=== PATIENT | male | born 1955 | race Caucasian/White ===

== ENCOUNTER 2024-01-17 21:14 | Inpatient (IN) | payer MEDICARE, SELFPAY ==
--- NOTE | ~2024-01-17 | XR_ITS ---
XR chest 1V portable Ordering provider: Chava Chan PA-C History: 68 years Male with . chest pain, shortness of breath . Comparison: None. FINDINGS: MEDIASTINUM: The cardiac silhouette is not enlarged. LUNGS: No infiltrates, effusions or pneumothorax. OTHER: No free air under the diaphragm. Degenerative changes of the spine. Postoperative changes in the lower cervical area. IMPRESSION: No acute cardiopulmonary pathology. Reviewed, dictated and finalized at location A.
[2024-01-17 21:18] VITALS: BP 138/104; PULSE 170; RESP 20; TEMP 36.7; O2SAT 97
--- NOTE | 2024-01-17 21:21 | ECG_ITS ---
[facility] [address] Test Date: 2024-01-17 Pat Name: Marcel Albrecht Department: Room: Gender: M Network Project Manager: Cd : 1955 Requested By: Red Pierce Order Number: [id number] Elba MD: Pacheco Manning M.D. Measurements Intervals [place] Rate: 129 P: 0 ID: [id number] QRS: 29 QRSD: 91 T: 21 QT: 275 QTc: 403 Interpretive Statements ATRIAL FIBRILLATION WITH RAPID VENTRICULAR RESPONSE NONSPECIFIC ST SEGMENT ABNORMALITY ABNORMAL ECG No previous ECG available for comparison Electronically Signed On 01-18-2024 08:07:16 CDT by Pacheco Manning M.D.
[2024-01-17] MEDS: dilTIAZem HCl INJ 25 MG/5 ML VIAL 15 MG IV PUSH (21:33)
--- NOTE | 2024-01-17 21:34 | ECG_ITS ---
[facility] [address] Test Date: 2024-01-17 Pat Name: Marcel Albrecht Department: Room: 209 Gender: M Pipe Cutter: : 1955 Requested By: Gemini Louis Order Number: [id number] Elba MD: Pacheco Manning M.D. Measurements Intervals [place] Rate: 115 P: 0 [place]: 0 QRS: 12 QRSD: 93 T: 9 QT: 318 QTc: 441 Interpretive Statements ATRIAL FIBRILLATION WITH RAPID VENTRICULAR RESPONSE BORDERLINE LEFTWARD AXIS ABNORMAL RHYTHM ECG Compared to ECG 01/17/2024 21:21:41 HEART RATE IS BETTER CONTROLLED Electronically Signed On 01-19-2024 07:40:06 CDT by Pacheco Manning M.D.
--- NOTE | 2024-01-17 21:37 | ED.CHESTPAIN ---
HPI - Chest Pain General Chief Complaint: Chest Pain <GRAHAM Rose Last Filed: 01/18/24 01:59> Stated Complaint: chest <GRAHAM Rose Last Filed: 01/18/24 01:59> Time Seen by Provider: 01/17/24 21:29 <GRAHAM Rose Last Filed: 01/18/24 01:59> Source: patient <GRAHAM Rose Last Filed: 01/18/24 01:59> Mode of arrival: ambulatory <GRAHAM Rose Last Filed: 01/18/24 01:59> Limitations: no limitations <GRAHAM Rose Last Filed: 01/18/24 01:59> History of Present Illness HPI narrative: This is a 68-year-old male With PMH of HLD, HTN who presents to the ED for chief complaint of chest pain and shortness of breath beginning around 6:00 p.m. this evening. Reports the pain was located on the left side hand seemed to maybe get a little better when he pushed on it. Describes it as discomfort. States that shortness of breath was onset alongside the chest pain. Dyspnea was worse with exertion. States it was hard to get across the room without feeling winded. Also endorses palpitations and feelings of racing heart. States he was feeling fine up until this point and his usual state of health. Denies fevers, chills, abdominal pain, cough, nausea, vomiting, syncope, leg swelling. <GRAHAM Rose Last Filed: 01/18/24 01:59> Related Data Home Medications: Home Medications Medication Instructions Recorded Confirmed atorvastatin 40 mg tablet 40 mg PO DAILY 01/22/23 01/18/24 lisinopril 40 mg tablet 40 mg PO DAILY 01/22/23 01/18/24 meloxicam 15 mg tablet 15 mg PO DAILY 01/22/23 01/18/24 multivit with minerals-iron 18 1 tablet PO DAILY 01/18/24 01/18/24 mg-folic ac 400 mcg-vit K 25 mcg tablet (Adults Multivitamin) multivitamin 1 tablet PO DAILY 01/18/24 01/18/24 <Chava Chan PA-C - Last Filed: 01/18/24 01:59> Allergies/Adverse Reactions: Allergies Allergy/AdvReac Type Severity Reaction Status Date / Time No Known Allergies Allergy Mild Verified 01/18/24 02:15 <GRAHAM Rose Last Filed: 01/18/24 01:59> Review of Systems Review of Systems: All systems as dictated in HPI <GRAHAM Rose Last Filed: 01/18/24 01:59> [facility] Past Medical History Medical History: Medical History Hyperlipidemia Hypertension Osteoarthritis <GRAHAM Rose Last Filed: 01/18/24 01:59> Surgical History Surgical History: Surgical History History of arthroscopy of left knee 06/2018 History of colon resection 12/12/2017 Hx of fusion of cervical spine C6 04/15/2019 <Chava Chan PA-C - Last Filed: 01/18/24 01:59> Family History Family History: Family History Father COPD (chronic obstructive pulmonary disease) Mother Aneurysm Breast cancer Sibling Breast cancer <Chava Chan PA-C Last Filed: 01/18/24 01:59> Social History Social History: Social History Smoking status: Never smoker Second hand tobacco smoke exposure: No Alcohol intake: never Substance use: never Substance use type: does not use Do You Feel Safe in your Home?: Yes Lack of Transportation: No Lack of Food: Never True Current Housing: I Have Housing Concerned About Future Housing: No Difficulty Paying Gas/Electric Bills: No Difficulty Paying for Meds: No Currently Unemployed: No Education: High School Diploma/GED Difficulty w/ Childcare or Family Care: No Living arrangements: with family Occupation/Education: retired Gender identity (if verbalized by the patient): Male Sexual Orientation (if Verbalized by the Patient): Straight or Heterosexual Spiritual care concerns: No <Chava Chan PA-C - Last Filed: 01/18/24 01:59>
[2024-01-17] MEDS: SODIUM CHLORIDE 0.9% IV 1,000 ML 999 ML IV CONT (21:51)
[2024-01-17 21:59] LABS: Basophils Percent Auto 0.3 % (0.2-1.2); Eosinophils Absolute Auto 0.1 K/mm3 (0-0.3); Eosinophils Percent Auto 0.9 % (0-4.4); Hemoglobin 14.8 g/dL (14.0-18.0); Immature Granulocyte Absolute 0.02 K/mm3 (0.00-0.031); Immature Granulocyte Percent A 0.2 % (0-0.5); Lymphocytes Absolute Auto 1.84 K/mm3 (0.9-3.2); Lymphocytes Percent Auto 20.1 % (18.3-44.2); Mean Corpuscular HGB Conc 34.4 g/dl (32-36); Mean Corpuscular Hemoglobin 30.4 pg (26-34); Mean Corpuscular Volume 88.3 fl (80-100); Mean Platelet Volume 12.4 fl (7.4-10.4); Monocytes Absolute Auto 0.8 K/mm3 (0.1-0.6); Monocytes Percent Auto 8.7 % (2.6-8.5); Neutrophils Absolute Auto 6.4 K/mm3 (1.3-6.7); Neutrophils Percent Auto 69.8 % (45.5-73.1); Platelet Count Result 201 k/mm3 (150-375); Red Blood Count 4.87 M/mm3 (4.6-6.20); Red Cell Distribution Width 13.1 % (11.5-14.5); White Blood Count 9.2 K/mm3 (4.5-10.0)
[2024-01-17 22:10] LABS: Prothrombin Time 13.4 Seconds (11.1-14.7)
[2024-01-17] MEDS: dilTIAZem HCl INJ 25 MG/5 ML VIAL 10 MG IV PUSH (22:10)
[2024-01-17 22:11] LABS: Partial Thromboplastin Time 29.8 Seconds (22.3-36.8)
[2024-01-17 22:15] VITALS: BP 105/69; PULSE 104; RESP 18; O2SAT 94
[2024-01-17 22:15] LABS: Alanine Aminotransferase 32 U/L (6-50); Albumin Level 4.5 g/dL (3.5-5.1); Alkaline Phosphatase 67 U/L (38-126); Anion Gap 9 mmol/L (4-12); Aspartate Amino Transferase 36 U/L (17-59); Bilirubin,Total 0.7 mg/dL (0.2-1.3); Blood Urea Nitrogen 37 mg/dL (9-20); Carbon Dioxide 22 mmol/L (22-30); Chloride 109 mmol/L (98-107); Estimated CRCL calculation 66 ml/min; Estimated Glomerular Filt Rate 60; Glucose 152 mg/dL (65-110); Lipase 204 U/L (23-300); Potassium 3.8 mmol/L (3.4-5.0); Sodium 140 mmol/L (137-145)
[2024-01-17 22:27] LABS: NT Pro B Type Natriuretic Pept 44 pg/mL (19.9-100); Troponin I 0.017 ng/mL (0.000-0.034)
[2024-01-17 22:34] LABS: D Dimer 0.38 ug/mL (<0.48)
[2024-01-17 22:44] VITALS: BP 112/69; PULSE 118; RESP 16; O2SAT 96
[2024-01-17 23:30] VITALS: BP 110/58; PULSE 146
[2024-01-17] MEDS: dilTIAZem 100 MG/100 ML 100 MG/100 ML BAG IV CONT (23:30)
[2024-01-18] VITALS (23 sets, daily range): BP systolic 103–144; BP diastolic 56–86; PULSE 56–138; RESP 13–18; TEMP 36.1–37.2; O2SAT 94–98; BMI 31.4
[2024-01-18] MEDS: ENOXAPARIN 40 MG/0.4 ML SYRINGE SUB-Q (01:10)
[2024-01-18] MEDS: ASPIRIN 81 MG CHEWABLE TABLET 324 MG PO (01:11)
--- NOTE | 2024-01-18 01:36 | ADMGEN ---
This patient, Marcel Albrecht, was admitted to IMU Room 209-01 on 01/18/24 at 0135. Patient/family oriented to hospital policies and general routines including ID bracelet, bed and alarms, visiting hours, pain management, procedures, bathroom and other care routines, personal items, smoking policy, room service/diet, and visiting hours. Information on how to activate the Rapid Response Team has been discussed. Patient/Family are encouraged to report perceived risks to care and to ask questions if they do not understand what they are told or what they should do.
[2024-01-18 01:56] LABS: Troponin I 0.251 ng/mL (0.000-0.034)
[2024-01-18 02:58] LABS: Appearance Urine Clear (Clear); Bilirubin Urine Negative (Negative); Blood Urine Negative (Negative); Color Urine Yellow (Yellow); Glucose Urine UA Negative (Negative); Ketones Urine Trace mg/dL (Negative); Leukocyte Esterase Ur Negative LEU/UL (Negative); Nitrate Urine Negative (Negative); Protein Urine Negative (Negative); Specific Grav Ur 1.024 (1.001-1.035); Urobilinogen Urine 0.2 mg/dL (<2.0)
[2024-01-18 03:01] LABS: Add Urine Microscopic? NO
[2024-01-18 04:25] LABS: Troponin I 0.349 ng/mL (0.000-0.034)
--- NOTE | 2024-01-18 07:00 | ECHO_ITS ---
Patient Info Name: Marcel Albrecht Age: 68 years : 1955 Gender: Male Ht: 72 in Wt: 233 lbs BSA: 2.35 m2 HR: 115 bpm BP: 106 / 58 mmHg Heart Rhythm: Sinus Rhythm Technical Quality: Good Exam Date: 01/18/2024 8:40 AM Exam Location: Echo Lab Patient Status: Inpatient Admit Date: 01/18/2024 Staff Ordering Physician: Chava Chan PA-C Granite Installer: Sander Hemphill RDCS Attending Provider: Jadiel Crockett MD Referring Physician: Dustin ALEJANDRO; Exam Type: CA echo doppler color flow Study Info Indications - new onset afib Complete two-dimensional, color flow and Doppler transthoracic echocardiogram is performed. Summary 1. Complete two-dimensional, color flow and Doppler transthoracic echocardiogram is performed. 2. Essentially unremarkable 2D/Doppler echocardiogram. 3. History of AFib, currently in sinus rhythm at the time of this exam. Left Ventricle Left ventricular chamber dimension is normal. Left ventricular systolic function is normal, estimated at 65-70%. The left ventricular diastolic function is normal. Right Ventricle Right ventricular chamber dimension is normal. Left Atria Left atrial chamber dimension is normal. Right Atria Right atrial chamber dimension is normal. Aortic Valve The aortic valve is normal. Pulmonic Valve The pulmonic valve is normal. Mitral Valve The mitral valve has normal leaflets. Tricuspid Valve The tricuspid valve leaflets are normal. Pericardium/Pleural The pericardium appears normal. Aorta The aortic root size at the sinus of Valsalva is normal. Left Ventricular Outflow Tract Name Value Normal LVOT 2D LVOT Diameter 2.2 cm LVOT Doppler LVOT Peak Gradient 5 mmHg LVOT Mean Gradient 3 mmHg LVOT VTI 29 cm LVOT VTI/AV VTI Ratio 1.0 LVOT Stroke Volume 106 ml LVOT CO 6.4 l/min LVOT CI 2.7 l/min/m2 Pulmonic Valve Name Value Normal PV Doppler PV Peak Gradient 2 mmHg Mitral Valve Name Value Normal MV Doppler MV Peak Gradient 4 mmHg MV Mean Gradient 1 mmHg MV Decel Towner 591 cm/s2 MV PHT 49 ms MV Area (PHT) 4.5 cm2 4.0-5.0 MV Area (Cont Eq VTI) 3.2 cm2 MV Diastolic Function MV E Peak Velocity 100 cm/s MV A Peak Velocity 53 cm/
--- NOTE | 2024-01-18 07:46 | PM.IMHP ---
H&P: HPI History of Present Illness Date/Time: 01/18/24 07:46 Chief Complaint: chest pain shortness of breath Narrative: 68 years old gentleman with history of hypertension, hyperlipidemia, present ED with a chief complaint of chest pain and shortness breath. Patient started have chest pain Assist with short of breath about 6:00 p.m. yesterday. Is located in left side of the chest, and shortness breast is worse with exertion, patient also has palpitation. patient denies headache, lightheadedness, focal weakness or numbness,abdomen pain, nausea vomiting diarrhea. Patient came to ED for evaluation treatment. Upon arrival in ED, patient was afebrile, blood pressure stable, pulse ox 97 on room air, patient was found have tachycardia of 170, EKG showed atrial fibrillation RVR, no specific ST T-wave changes. CBC unremarkable, patient was also found have elevated BUN creatinine 37/1.20, baseline creatinine 0.85 July 26, 2023. First troponin 0.017, 2nd troponin 0.349, urinalysis unremarkable and a chest x-ray does not show acute cardiopulmonary issues Review of Systems Review of Systems: ROS negative except above PMFSH Past Medical History Medical History Hyperlipidemia Hypertension Osteoarthritis Surgical History Surgical History History of arthroscopy of left knee 06/2018 History of colon resection 12/12/2017 Hx of fusion of cervical spine C6 04/15/2019 Family History Family History Father COPD (chronic obstructive pulmonary disease) Mother Aneurysm Breast cancer Sibling Breast cancer Social History Social History Smoking status: Never smoker Second hand tobacco smoke exposure: No Alcohol intake: never Substance use: never Substance use type: does not use Do You Feel Safe in your Home?: Yes Lack of Transportation: No Lack of Food: Never True Current Housing: I Have Housing Concerned About Future Housing: No Difficulty Paying Gas/Electric Bills: No Difficulty Paying for Meds: No Currently Unemployed: No Education: High School Diploma/GED Difficulty w/ Childcare or Family Care: No Living arrangements: with family Occupation/Education: retired Gender identity (if verbalized by the patient): Male Sexual Orientation (if Verbalized by the Patient): Straight or Heterosexual Spiritual care concerns: No Meds Home Medications and Allergies Home Medications Medication Instructions Recorded Confirmed Type atorvastatin 40 mg tablet 40 mg PO DAILY 01/22/23 01/18/24 History lisinopril 40 mg tablet 40 mg PO DAILY 01/22/23 01/18/24 History meloxicam 15 mg tablet 15 mg PO DAILY 01/22/23 01/18/24 History hydrochlorothiazide 25 mg tablet See Rx Instructions .Route 01/18/24 Rx .COMPLEX #90 tabs multivit with minerals-iron 18 1 tablet PO DAILY 01/18/24 01/18/24 History mg-folic ac 400 mcg-vit K 25 mcg tablet (Adults Multivitamin) multivitamin 1 tablet PO DAILY 01/18/24 01/18/24 History Allergies Allergy/AdvReac Type Severity Reaction Status Date / Time No Known Allergies Allergy Mild Verified 01/18/24 02:15 Vital Signs Vital Signs - 24 hr 01/17/24 21:18 01/17/24 21:28 01/17/24 22:15 Temperature 98.1 F Pulse Rate 170 H 104 H Respiratory Rate 20 18 Blood Pressure 138/104 H 105/69 Pulse Oximetry 97 94 Oxygen Delivery Room Air Room Air 01/17/24 22:44 01/17/24 23:30 01/18/24 00:06 Temperature Pulse Rate 118 H 146 H 138 H Respiratory Rate 16 Blood Pressure 112/69 110/58 L 103/67 Pulse Oximetry 96 Oxygen Delivery 01/18/24 00:17 01/18/24 00:31 01/18/24 01:00 Temperature Pulse Rate 124 H 117 H 115 H Respiratory Rate 16 17 15 Blood Pressure 120/84 105/63 116/65 Pulse Oximetry
[2024-01-18 09:08] LABS: Cholesterol 124 mg/dL (0-200); HDL Direct 43 mg/dL; Triglycerides 73 mg/dL (<150)
[2024-01-18 09:19] LABS: LDL Cholesterol Direct 75 mg/dL
[2024-01-18 09:21] LABS: Troponin I 0.286 ng/mL (0.000-0.034)
[2024-01-18] MEDS: ASPIRIN 81 MG ENTERIC TABLET PO (09:31)
[2024-01-18] MEDS: ATORVASTATIN 40 MG TABLET PO (09:31)
[2024-01-18] MEDS: dilTIAZem 100 MG/100 ML 100 MG/100 ML BAG 10 MG IV CONT (10:00)
--- NOTE | 2024-01-18 11:58 | PM.CNCAR ---
Assessment and Plan Assessment and plan (1) Atrial fibrillation with rapid ventricular response: Code(s): I48.91 - Unspecified atrial fibrillation Status: Acute Plan This is a 68-year-old man with hypertension admitted last evening with a symptomatic episode of atrial fib for the 1st time in his life. He has converted to sinus rhythm after being treated with intravenous diltiazem. I am going to stop the IV diltiazem and start metoprolol 50 mg daily. Will also is systemically anticoagulate him with apixaban as he has a chads Vasc score of 2. He will be taken off of intravenous diltiazem and I will look at his echocardiogram later. He remains in sinus rhythm I think discharged tomorrow would be appropriate. Arrange follow-up in the office in appropriate fashion for longitudinal follow-up of his his atrial fib. Thank you for asking me to see this nice man in consultation Pacheco Manning MD [facility] History of Present Illness History of Present Illness Consult date/time: 01/18/24 11:58 Reason For Visit: afib rvr Narrative: This is a very pleasant 68-year-old man I am seeing at the request of the hospitalist to assist with management of atrial fibrillation. He is not known to me prior to this consultation and reports that he is not known to have any cardiac problems prior to this. He was in his usual state of health when last night at his home he suddenly noticed the onset of tachycardia, palpitations and feeling unwell. He thought this might pass after a while he decided to take a shower and relax but the symptoms did not resolve so eventually he came into the emergency room for evaluation. Upon arrival he was found to be in atrial fib with RVR. Of course he was started on intravenous diltiazem which did improve his heart rate and he was then admitted to the IMU. Overnight he has converted to sinus rhythm he is currently in sinus rhythm in the heart rate in the high 50s and low 60s any reports no symptoms currently. He does not exercise with any regular structured fashion but he does lead an active lifestyle and does not have any exertional symptoms generally such as dyspnea chest pain he normally has not had symptoms of palpitations like he experienced last night that he can recall. He does not have lower extremity edema orthopnea or PND. An echocardiogram was done a short time ago that has yet to be interpreted. His medical regimen for hypertension includes high dose of lisinopril with hydrochlorothiazide he also takes atorvastatin for dyslipidemia. 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 Review of Systems Constitutional: Constitutional: Reports no additional constitutional complaints Eyes: Eyes: Reports no additional eye complaints ENT: Reports system reviewed and no additional complaints, except as documented Cardiovascular: Cardiovascular: Reports as per HPI Respiratory: Respiratory: Reports no additional respiratory complaints Gastrointestinal: Gastrointestinal: Reports no additional gastrointestinal complaints Musculoskeletal: Musculoskeletal: Reports no additional musculoskeletal complaints Integumentary/Breasts: Skin/Breast: Reports system reviewed and no additional complaints, except as docu Neurologic: Reports system reviewed and no additional complaints, except as documented Endocrine: Endocrine: Reports no additional endocrine complaints Hematologic/Lymphatic: Hematologic/Lymphatic: Reports no additional hematologic/lymphatic complaints Allergic/Immunologic: Allergic/Immunologic: Reports no additional allergic/immunologic complaints PMFSH Past Medical History Medical History Hyperlipidemia Hypertension Osteoarthritis Surgical History Surgical History History of arthroscopy of left knee 06/2018 History of colon resection 12/12/2017 Hx of fusion of cervical spine C6
[2024-01-18 12:15] LABS: Troponin I 0.266 ng/mL (0.000-0.034)
[2024-01-18] MEDS: METOPROLOL SUCCINATE EXT REL 50 MG TABCR PO (12:24)
[2024-01-18] MEDS: APIXABAN 5 MG TABLET PO (20:22)
[2024-01-19] VITALS (9 sets, daily range): BP systolic 107–112; BP diastolic 62–73; PULSE 50–70; RESP 15–18; TEMP 36.4–36.8; O2SAT 97–99
[2024-01-19 08:12] LABS: Hematocrit 40.5 % (42.0-52.0); Hemoglobin 13.7 g/dL (14.0-18.0); Mean Corpuscular HGB Conc 33.8 g/dl (32-36); Mean Corpuscular Hemoglobin 30.9 pg (26-34); Mean Corpuscular Volume 91.4 fl (80-100); Mean Platelet Volume 12.2 fl (7.4-10.4); Platelet Count Result 158 k/mm3 (150-375); Red Blood Count 4.43 M/mm3 (4.6-6.20); Red Cell Distribution Width 13.2 % (11.5-14.5); White Blood Count 7.2 K/mm3 (4.5-10.0)
[2024-01-19 08:30] LABS: Anion Gap 4 mmol/L (4-12); Blood Urea Nitrogen 19 mg/dL (9-20); Calcium 8.5 mg/dL (8.4-10.2); Carbon Dioxide 25 mmol/L (22-30); Chloride 109 mmol/L (98-107); Estimated CRCL calculation 111 ml/min; Estimated Glomerular Filt Rate > 60; Glucose 172 mg/dL (65-110); Magnesium 1.9 mg/dL (1.6-2.3); Potassium 4.1 mmol/L (3.4-5.0); Sodium 138 mmol/L (137-145)
[2024-01-19] MEDS: METOPROLOL SUCCINATE EXT REL 50 MG TABCR PO (08:52)
[2024-01-19] MEDS: APIXABAN 5 MG TABLET PO (08:54)
[2024-01-19] MEDS: ATORVASTATIN 40 MG TABLET PO (08:54)
[2024-01-19] MEDS: ASPIRIN 81 MG ENTERIC TABLET PO (08:54)
--- NOTE | 2024-01-19 09:21 | PM.PNCARD ---
Progress Note: A&P Assessment and Plan (1) Atrial fibrillation with rapid ventricular response: Code(s): I48.91 - Unspecified atrial fibrillation Status: Acute Plan 68-year-old man with hypertension and paroxysmal atrial fibrillation. Arrhythmia is quiescent on metoprolol. For the time being it looks like he does not require his ROMA-inhibitor and diuretic for hypertension as his blood pressure is favorable with just the metoprolol. He is tolerating anticoagulation with apixaban. Echocardiogram does not demonstrate any significant structural abnormalities. From my perspective he is stable for discharge. Will arrange appropriate follow-up in my office regarding his arrhythmia. Office will reach out to him for an appointment on Saturday Pacheco Manning MD [facility] Subjective Date/time seen: Date of service: 01/19/24 09:21 Interval history: Follow-up visit in this 68-year-old man with paroxysmal atrial fibrillation and hypertension Exam Const: General: comfortable and no acute distress HENMT: Mouth: Yes moist mucous membranes Eyes: Sclera: sclerae normal Neck: Neck: supple Resp: Effort & Inspection: normal respiratory effort Auscultation: clear to auscultation bilaterally Cardio: Rate: regular rate Rhythm: regular rhythm GI: GI Palp: Yes Soft to palpation Auscultation: normal bowel sounds Skin: General skin exam: normal color Neuro: Other: Normal cognition Extrem: Other: No edema, good distal pulses Objective Data Vital Signs Vital Signs: Vital Signs - 24 hr 01/18/24 10:00 01/18/24 11:33 01/18/24 12:24 Temperature 36.1 C L 36.4 C Pulse Rate 58 L 60 59 L Respiratory Rate 13 16 Blood Pressure 110/57 L 123/59 L Pulse Oximetry 97 98 Oxygen Delivery 01/18/24 10:00 01/18/24 12:00 01/18/24 14:00 Temperature Pulse Rate 60 59 L 65 Respiratory Rate Blood Pressure Pulse Oximetry Oxygen Delivery 01/18/24 16:00 01/18/24 10:00 01/18/24 10:00 Temperature Pulse Rate 73 60 59 L Respiratory Rate Blood Pressure Pulse Oximetry Oxygen Delivery 01/18/24 12:00 01/18/24 16:00 01/18/24 18:00 Temperature 36.6 C Pulse Rate 60 64 59 L Respiratory Rate 18 Blood Pressure 126/58 L Pulse Oximetry 97 Oxygen Delivery 01/18/24 12:00 01/18/24 16:00 01/18/24 19:58 Temperature 36.2 C L Pulse Rate 58 L Respiratory Rate 16 Blood Pressure 114/60 Pulse Oximetry 97 Oxygen Delivery Room Air Room Air 01/18/24 20:00 01/18/24 23:58 01/19/24 00:00 Temperature 36.3 C L Pulse Rate 58 L 56 L 56 L Respiratory Rate 16 16 16 Blood Pressure 117/69 Pulse Oximetry 97 97 97 Oxygen Delivery Room Air Room Air 01/18/24 20:00 01/18/24 22:00 01/19/24 00:00 Temperature Pulse Rate 60 57 L 56 L Respiratory Rate Blood Pressure Pulse Oximetry Oxygen Delivery 01/19/24 02:00 01/19/24 04:00 01/19/24 04:00 Temperature 36.4 C L Pulse Rate 51 L 54 L 54 L Respiratory Rate 15 15 Blood Pressure 112/73 Pulse Oximetry 98 98 Oxygen Delivery Room Air 01/19/24 04:00 01/19/24 05:56 01/19/24 07:22 Temperature 36.8 C Pulse Rate 50 L 52 L 55 L Respiratory Rate 18 Blood Pressure 109/68 Pulse Oximetry 99 Oxygen Delivery 01/19/24 08:52 Temperature Pulse Rate 70 Respiratory Rate Blood Pressure Pulse Oximetry Oxygen Delivery Intake/Output Intake/Output: Intake & Output 01/16/24 01/17/24 01/18/24 01/19/24 23:59 23:59 23:59 23:59 Intake Total 1000 800 600 Output Total 1400 680 Balance 1000 -600 -80 Meds/Results Medications: Active Medications Generic Name Dose Route Start Last Admin Trade Name Dolly PRN Reason Stop Dose Admin Acetaminophen 650 mg 01/18/24 08:29 Acetaminophen 325 Mg Tablet PO Q6H PRN Mild Pain (1-3) or Fever Apixaban 5 mg 01/18/24 21:00 01/19/24 08:54 Apixaban 5 Mg Tablet PO 5 mg Q12HR SARIKA Administration
--- NOTE | 2024-01-19 11:24 | PM.DS ---
DS: Admitting Diagnosis Discharge Date 01/17/2024 Admitting Diagnosis Chest pain Shortness of breath NSTEMI DS: Discharge Diagnosis Discharge Diagnosis (1) NSTEMI (non-ST elevated myocardial infarction): Code(s): I21.4 - Non-ST elevation (NSTEMI) myocardial infarction Status: Acute (2) Atrial fibrillation with rapid ventricular response: Code(s): I48.91 - Unspecified atrial fibrillation Status: Acute (3) Chest pain: Code(s): R07.9 - Chest pain, unspecified Status: Acute DS: Summary Hospital Course Hospital Course: HPI: 68 years old gentleman with history of hypertension, hyperlipidemia, present ED with a chief complaint of chest pain and shortness breath. Patient started have chest pain Assist with short of breath about 6:00 p.m. yesterday. Is located in left side of the chest, and shortness breast is worse with exertion, patient also has palpitation. patient denies headache, lightheadedness, focal weakness or numbness,abdomen pain, nausea vomiting diarrhea. Patient came to ED for evaluation treatment. Upon arrival in ED, patient was afebrile, blood pressure stable, pulse ox 97 on room air, patient was found have tachycardia of 170, EKG showed atrial fibrillation RVR, no specific ST T-wave changes. CBC unremarkable, patient was also found have elevated BUN creatinine 37/1.20, baseline creatinine 0.85 July 26, 2023. First troponin 0.017, 2nd troponin 0.349, urinalysis unremarkable and a chest x-ray does not show acute cardiopulmonary issues. Patient presented with c/o chest pain, was found to have new onset atrial fibrillation patient was started on IV diltiazem and he converted back into NSR, patient was seeing by the stonecutter and started the patient on Metoprolol succinate 50mg qd, patient and Eliquis as patient CHADS VASC score is 2, patient blood pressure is soft with metoprolol and the stonecutter stopped lisinopril and HCTZ. patient remains in NSR and clinically stable will discharge home today and will follow up with his stonecutter as scheduled and his primary care provider as soon as possible. Patient to follow discharge care instruction from his stonecutter and follow up as scheduled, patient to follow up with his primary care provider as soon as possible, patient is instructed if any symptoms redevelop to go to nearest ER. Time Spent with Patient Time attestation: Total time spent providing and/or coordinating discharge services: Exam Narrative: Const: General: comfortab le and no acute di stress Other: W ell-developed well -nourished pleasan t gentleman no abundio arent distress of any kind HENMT: Mouth: Yes moist m ucous membranes Eyes: Sclera: sclerae no rmal Neck: Neck: supple and n o JVD Other: Ca rotid pulses are u nremarkable bilate rally Resp: Effort & Inspectio n: normal respirat ory effort Auscul tation: clear to a uscultation bilate rally Cardio: Rate: regular rate Rhythm: regular rhythm Other: GI: GI Palp: Yes Soft to palpation Ausc ultation: normal b owel sounds Skin: General skin exam: normal color Neuro: Other: Alert and oriented x3 Extrem: Other: Unremarka ble, no edema good distal perfusion DS: Data Data Completed and Pending
== END 2024-01-19 13:30 | disposition home or self-care (01) | DRG 309 ==
LOC: ANHED 01-18 00:29 → ANHIMU 01-18 01:05
PROVIDERS: Hospitalist; Admitting Provider Family Medicine; Emergency Provider Physician Assistant; PCP Family Medicine; Visit Provider Family Medicine
DX: I48.0 Paroxysmal atrial fibrillation (principal); I24.89 Other forms of acute ischemic heart disease; I10 Essential (primary) hypertension; E78.5 Hyperlipidemia, unspecified
CPT/HCPCS: 36415; 71045; 80048; 80053; 80061; 81003; 83690; 83735; 83880; 84484; 85025; 85027; 85380; 85610; 85730; 93005; 93306; 96365; 96366; 96376; 99285; A9270; G0378; J1650; J7030

== ENCOUNTER 2024-02-04 12:52 | Outpatient (CLI) | payer MEDICARE, SELFPAY ==
--- NOTE | 2024-02-21 13:45 | WPDSLEEPSTUD ---
Sleep Study Date of Study: 02/04/24 Ordering Provider: ELIEZER Espinoza Interpreting Physician: Maame Jacobson MD Sleep Study Type: Split Polysomnogram Height: 1.85 m Weight: 106.594 kg Body Mass Index: 30.9 Neck Circumference (inches): 18 [place]: 5 Reason for Sleep Study Snoring; has recent diagnosis of atrial fibrillation Sleep History Marcel Albrecht is a 68-year-old man with a recent diagnosis of atrial fibrillation. He has hypertension. He never awakens from sleep feeling short of breath. He never wakes at night with heartburn, belching or coughing.??He occasionally snores loudly enough that others complain. He never has trouble sleeping when he has a cold. He never wakes up gasping for breath during the night. He never has breathing problems at night. He never sweats excessively at night. He never notices his heart pounding or beating irregularly during the night. He rarely falls asleep during the day. He never falls asleep involuntarily, never falls asleep while driving. He never experiences loss of muscle tone with strong emotion. He never has daytime difficulty at work due to excessive sleepiness. He never feels paralyzed on waking or falling asleep. He never experiences vivid dreams upon waking or falling asleep. He never feels afraid of going to sleep. He never has nightmares. He rarely recalls his dreams. He never has thoughts racing through his mind. He never feels sad or depressed. He never feels anxiety. He never notices parts of his body jerk. He never kicks during the night. He rarely feels crawling or aching feelings in his legs. He never feels leg pain at night. He never has morning jaw pain, never grinds his teeth at night. He occasionally feels bothered by pain during the day, never awakened by pain during the night. He occasionally wakes up feeling stiff in the morning, and he occasionally wakes feeling sore or achy. He occasionally awakens with pain in his neck, spine, or joints. Normal bedtime is 10:00 p.m., falling asleep within 15-30 minutes, not waking during the night. Wake time is between 5:00 a.m. and 6:00 a.m.. He typically gets between 6 and 7 hours of sleep per night. He keeps the same schedule on weekends. He takes no naps in the day, however a short nap on occasion lasting 10-15 minutes may be refreshing. Habits:??Tobacco: Never smoker Caffeine: 3 cups daily Alcohol: none Recreational substances: none PMFSH Past Medical History Medical History History of non-ST elevation myocardial infarction (NSTEMI) Hyperlipidemia Hypertension Osteoarthritis Paroxysmal atrial fibrillation Surgical History Surgical History History of arthroscopy of left knee 06/2018 History of colon resection 12/12/2017 Hx of fusion of cervical spine C6 04/15/2019 Family History Family History Father COPD (chronic obstructive pulmonary disease) Mother Aneurysm Breast cancer Sibling Breast cancer Social History Social History Smoking status: Never smoker Second hand tobacco smoke exposure: No Alcohol intake: never Substance use: never Substance use type: does not use Do You Feel Safe in your Home?: Yes Lack of Transportation: No Lack of Food: Never True Current Housing: I Have Housing Concerned About Future Housing: No Difficulty Paying Gas/Electric Bills: No Difficulty Paying for Meds: No Currently Unemployed: No Education: High School Diploma/GED Difficulty w/ Childcare or Family Care: No Living arrangements: with family Occupation/Education: retired Gender identity (if verbalized by the patient): Male Sexual Orientation (if Verbalized by the Patient): Straight
[2024-02-25 18:59] VITALS: BMI 30.9
== END 2024-02-05 07:01 | disposition home or self-care (01) ==
LOC: ANHCSM 12:54
PROVIDERS: PCP Family Medicine; Visit Provider Physician Assistant
DX: G47.33 Obstructive sleep apnea (adult) (pediatric) (principal); G47.39 Other sleep apnea
CPT/HCPCS: 95811